=== PATIENT | male | born 1965 | race Hispanic/Latino ===

== ENCOUNTER 2021-08-14 19:35 | Emergency (ER) | payer OTHER ==
[~2021-08-14] VITALS: Ht 167.6 cm; Wt 88.5 kg
[2021-08-14 19:39] VITALS: BP 153/89
[2021-08-14] MEDS ORDERED: HYDROCODONE/ACETAMINOPHEN 5/325 MG TAB PO ONE (21:00)
[2021-08-14] MEDS ORDERED: KETOROLAC 60 MG VIAL (30MG/ML) IM ONE (21:00)
[2021-08-14] MEDS ORDERED: PENICILLIN V POTASSIUM 500 MG TABLET PO ONE (21:00)
[2021-08-14] MEDS ORDERED: IBUP-2070 PO (21:06)
[2021-08-14] MEDS ORDERED: PENI500T2 PO (21:06)
[2021-08-14] MEDS ORDERED: ACET-2079 PO (21:06)
== END 2021-08-14 21:28 | disposition home or self-care (01) ==
LOC: EDH 19:35
DX: K02.9 Dental caries, unspecified (principal); K08.89 Other specified disorders of teeth and supporting structures
CPT/HCPCS: 96372; 99283; J1885

== ENCOUNTER 2025-01-25 02:10 | Emergency (ER) | payer OTHER ==
[~2025-01-25] VITALS: Ht 162.6 cm; Wt 85.7 kg
[~2025-01-25 02:10] MED LIST: ACET-2079 PO; IBUP-1492 PO; PENI500T2 PO
[2025-01-25 02:39] VITALS: BP 166/79; PULSE 85; RESP 19; TEMP 98.8; O2SAT 99
[2025-01-25] MEDS ORDERED: PENI500T2 PO (02:42)
[2025-01-25] MEDS ORDERED: IBUP-2077 PO (02:42)
--- NOTE | 2025-01-25 02:43 | ERN ---
ED Note History of Present Illness Stated Complaint: C/O TOOTHACHE W/ SWELLING TO RT UPPER SIDE Chief Complaint: Tooth Ache/Pain Time Seen by MD: 02:15 Dictation: 59-YEAR-OLD MALE PRESENTS TO ER COMPLAINTS OF RIGHT CHEEK SWELLING. PATIENT STATES HE HAS HAD A PREVIOUS ABSCESS TO THE RIGHT UPPER GUM AREA Allergies: Coded Allergies: No Known Allergies (Unverified Allergy, Unknown, 08/14/21) Home Meds Active Scripts Penicillin V Potassium (Penicillin V Potassium) 500 Mg Tablet, 1 TAB PO QID for 10 Days, #40 TAB 0 Refills Prov:DEON FLORES MD 08/14/21 Ibuprofen (Ibuprofen) 600 Mg Tablet, 600 MG PO Q6H PRN for PAIN, #30 TAB 0 Refills Prov:DEON FLORES MD 08/14/21 Acetaminophen with Codeine (Acetaminophen-Cod #3 Tablet) 1 Each Tablet, 1-2 TAB PO Q4H PRN for PAIN LEVEL 4 TO 6, #15 TAB 0 Refills Prov:DEON FLORES MD 08/14/21 Past Medical History Past Medical History: No Pertinent History Surgical History: None Review of System Dictation CONSTITUTIONAL: NEGATIVE FOR FEVER,CHILLS, AND WEIGHT LOSS EYES: NEGATIVE FOR INJURY, PAIN,REDNESS, AND DISCHARGE ENT: RIGHT-SIDED GUM SWELLING CARDIOVASCULAR: NEGATIVE FOR CHEST PAIN, PALPITATIONS, AND EDEMA RESPIRATORY: NEGATIVE FOR SHORTNESS OF BREATH, COUGH, WHEEZING, AND PLEURITIC CHEST PAIN ABDOMEN/GI: NEGATIVE FOR ABDOMINAL PAIN, NAUSEA, VOMITING AND DIARRHEA. BACK: NEGATIVE FOR PAIN OR INJURY : NEGATIVE FOR INJURY, BLEEDING AND DISCHARGE MS/EXTREMITY: NEGATIVE FOR INJURY AND DEFORMITY SKIN: NEGATIVE FOR RASH, AND DISCOLORATION NEURO: NEGATIVE FOR HEADACHE, WEAKNESS, NUMBNESS, TINGLING, AND SEIZURE PSYCH: NEGATIVE FOR SUICIDE IDEATION, HOMICIDAL IDEATION, AND HALLUCINATIONS ALLERGY/IMMUNOLOGY: NEGATIVE FOR HIVES, RASH, AND ALLERGIES ALL SYSTEMS NEGATIVE, EXCEPT NOTED ABOVE. 13 POINT REVIEW OF SYSTEMS ASSESSED AND ALL NEGATIVE EXCEPT FOR ABOVE. Initial Vital Sign VS Vital Signs Date Time Temp Pulse Resp B/P (MAP) Pulse Ox O2 Delivery O2 Flow Rate FiO2 01/25/25 02:12 97.9 79 20 206/86 97 Room Air Physical Exam Dictation GENERAL: AWAKE, ALERT, NAD HEAD/FACE: SWELLING NOTED TO RIGHT CHEEK EYES: PERRL, EOMI, VISION AT BASELINE ENT: ORAL CAVITY CLEAR, TMS CLEAR, NO SIGNS OF INFECTION NECK: TRACHEA MIDLINE, SUPPLE, NO NUCHAL RIGIDITY CARDIOVASCULAR: RRR, NORMAL NO JVD RESPIRATORY: CTAB, NO RESPIRATORY DISTRESS, NO RALES OR WHEEZES ABDOMEN: SOFT, NON-TENDER, NON-DISTENDED, NORMAL BOWEL SOUNDS, NO GUARDING OR REBOUND. SKIN: WARM, DRY, NORMAL TURGOR, NO RASH MS/EXTREMITY: PULSES EQUAL, NO CYANOSIS, NEUROVASCULAR INTACT, FROM NEURO: COAX4, GCS 15, STRENGTH 5/5, CN 2-12 INTACT, NORMAL CEREBELLAR EXAM, NORMAL GAIT, PSYCH: NORMAL BEHAVIOR, MOOD, AND AFFECT NORMAL ED Course ED Course Vital Signs Date Time Temp Pulse Resp B/P (MAP) Pulse Ox O2 Delivery O2 Flow Rate FiO2 01/25/25 02:12 97.9 79 20 206/86 97 Room Air Medical Decision Making MDM MDM: DIFFERENTIAL DIAGNOSIS: PERIODONTAL INFECTION, TOOTH ABSCESS, TOOTH CAVITY RATIONALE: TESTS CONSIDERED AND ORDERED SECONDARY TO SHARED DECISION MAKING INCLUDE: LABS, ECG AND RADIOLOGY PREVIOUS OUTSIDE RECORDS REVIEWED: OLD ER VISITS. RISK OF COMPLICATION AND/OR MORBIDITY OR MORTALITY OF PATIENT MANAGEMENT: NONE MEDICATIONS-PER MEDICATION RECONCILIATION NEED FOR HOSPITALIZATION: PATIENT DOES NOT MEET CRITERIA FOR HOSPITALIZATION. NEED FOR EMERGENCY MAJOR/MINOR SURGERY: NO THERE ARE NO SOCIAL CONCERNS WITH THIS PATIENT. PRESCRIPTION DRUG MANAGEMENT PRESCRIPTIONS WILL INCLUDE SYMPTOMATIC CARE PATIENT'S PRIOR EXTERNAL MEDICAL RECORDS FROM OTHER ER VISITS WERE REVIEWED BY ME INDICATED. PRIOR TESTING AND RESULTS FROM PREVIOUS VISITS WERE REVIEWED. PRIOR TESTS WERE TAKEN INTO ACCOUNT WITH MEDICAL DECISION MAKING AND RESOURCE UTILIZATION, INDEPENDENT HISTORIAN/HISTORIANS WERE USED TO OBTAIN COMPLETE MEDICAL HISTORY. I INDEPENDENTLY INTERPRETED THE TEST THAT WERE PERFORMED, RESULTS WERE REVIEWED BY ME AND CONSIDERED FINDINGS ON RADIOLOGY IF ORDERED. PATIENT ADVISED HE NEEDS TO FOLLOW UP WITH DENTIST. WILL PRESCRIBE ANTIBIOTICS FOR TOOTH INFECTION AND GUM INFECTION AT THIS TIME DX & DISP Disposition: Discharge Departure Impression: Primary Impression: Dentalgia Additional Impressions: Infected dental caries, Severe dental caries Condition: Stable Scripts Ibuprofen (Ibuprofen 800 mg Tab) 800 Mg Tab 800 MG PO Q8H PRN for fever or pain, #30 TAB 0 Refills Prov: CLARITA SCHMITZ [employer] 01/25/25 Penicillin V Potassium (Penicillin V Potassium) 500 Mg Tablet 1 TAB PO QID for 10 Days, #40 TAB 0 Refills Prov: CLARITA SCHMITZ [facility] 11/19/25 Additional Instructions: YOU NEED TO FOLLOW UP WITH DENTIST. TAKE ANTIBIOTICS PRESCRIBED YOU DO TO HELP WITH YOUR SYMPTOMS. FOLLOW-UP WITH YOUR PCP IN 24-72 HOURS AND IN THE EVENT IF SYMPTOMS WORSEN OR AN EMERGENCY OVERNIGHT REPORT TO THE ED IMMEDIATELY Referrals: SELF,REFERRAL (PCP) CLARITA SCHMITZ Jan 25, 2025 02:43
== END 2025-01-25 04:09 | disposition home or self-care (01) ==
LOC: EDH 02:10
DX: K02.9 Dental caries, unspecified (principal); K04.7 Periapical abscess without sinus
CPT/HCPCS: 99283